=== PATIENT | male | born 1995 ===

== ENCOUNTER 2017-05-21 19:13 | Emergency (ER) | payer MEDICAID ==
[2017-05-21 19:31] VITALS: BP 141/74; PULSE 66; RESP 16; TEMP 98.2; O2SAT 99
--- NOTE | 2017-05-21 21:07 | ED PDOC ---
HPI: Psych/Substance Abuse Time Seen by Provider: 05/21/17 19:38 Chief Complaint (Nursing): Psychiatric Evaluation Chief Complaint (Provider): Psychiatric Evaluation History Per: Patient, Family History/Exam Limitations: no limitations Onset/Duration Of Symptoms: Days (x 3 weeks) Current Symptoms Are (Timing): Still Present Additional Complaint(s): Homer is a 21 y/o male with a history of Autism, brought to the ED by family for psychiatric evaluation. Family members report patient has been increasingly aggressive over the last 3 weeks. Patient denies any physical complaints. PMD: Provider TBD Past Medical History Reviewed: Historical Data, Nursing Documentation, Vital Signs Vital Signs: Last Vital Signs Temp 98.2 F 05/21/17 19:28 Pulse 66 05/21/17 19:28 Resp 16 05/21/17 19:28 BP 141/74 05/21/17 19:28 Pulse Ox 99 05/21/17 19:28 - Medical History Other PMH: Autism - Family History Family History: States: Unknown Family Hx - Allergies Allergies/Adverse Reactions: Allergies Allergy/AdvReac Type Severity Reaction Status Date / Time No Known Allergies Allergy Verified 05/21/17 19:28 Review of Systems ROS Statement: Except As Marked, All Systems Reviewed And Found Negative Psych: Positive for: Other (Aggression) Physical Exam - Reviewed Nursing Documentation Reviewed: Yes Vital Signs Reviewed: Yes - Physical Exam Appears: Positive for: Well, Non-toxic, No Acute Distress Head Exam: Positive for: ATRAUMATIC, NORMAL INSPECTION, NORMOCEPHALIC Skin: Positive for: Normal Color, Warm, Dry Eye Exam: Positive for: Normal appearance Neck: Positive for: Normal Cardiovascular/Chest: Positive for: Regular Rate, Rhythm. Negative for: Murmur Respiratory: Positive for: Normal Breath Sounds. Negative for: Respiratory Distress Extremity: Positive for: Normal ROM. Negative for: Pedal Edema, Deformity Neurologic/Psych: Positive for: Alert, Oriented, Other (Behavior consistent with diagnosis). Negative for: Motor/Sensory Deficits - ECG O2 Sat by Pulse Oximetry: 99 (RA) Pulse Ox Interpretation: Normal Medical Decision Making Medical Decision Making: Time: 20:15 Initial Plan: --Ordered crisis evaluation Patient requesting info on cars, which I gave him. Patient was thankful and appeared happy. Time: 20:45 --Discussed case w/ firestop/containment worker. Patient is medically stable and will be discharged home. Clinical Impression: Autism Scribe Attestation: Documented by Danni Riley, acting as a scribe for Yareli Low PA-C Provider Scribe Attestation: All medical record entries made by the Scribe were at my direction and personally dictated by me. I have reviewed the chart and agree that the record accurately reflects my personal performance of the history, physical exam, medical decision making, and the department course for this patient. I have also personally directed, reviewed, and agree with the discharge instructions and disposition. Disposition - Clinical Impression Clinical Impression: Autism - Patient ED Disposition Is Patient to be Admitted: No Counseled Patient/Family Regarding: Diagnosis, Need For Followup - Disposition Referrals: [facility] [Outside] Disposition: Routine/Home Disposition Time: 20:45 Condition: STABLE Instructions: Autism Spectrum Disorder (ED) Forms: [employer] (Gambian)
== END 2017-05-21 21:20 | disposition home or self-care (01) ==
LOC: H.ER 19:13
DX: F84.0 Autistic disorder (principal)

== ENCOUNTER 2018-10-03 19:32 | Inpatient (IN) | payer MEDICARE, MEDICAID ==
[2018-10-03 22:18] LABS: BASO # 0.1 K/uL (0.0-0.2); BASO % 0.4 % (0.0-2.0); EOS % 0.3 % (0.0-4.0); HEMOGLOBIN 14.1 g/dL (12.0-18.0); LYMPH # 1.6 K/uL (1.0-4.3); LYMPH % 11.6 % (20.0-40.0); MEAN CELL VOLUME 85.4 fl (80.0-94.0); MEAN CORPUSCULAR HGB CONC 32.8 g/dL (33.0-37.0); MEAN PLATELET VOLUME 9.3 fl (7.2-11.7); MONO # 0.9 K/uL (0.0-0.8); MONO % 6.9 % (0.0-10.0); NEUT % 80.8 % (50.0-75.0); RBC 5.03 Mil/uL (4.40-5.90); RED CELL DISTRIBUTION WIDTH 14.4 % (11.5-14.5); WHITE BLOOD COUNT 13.6 K/uL (4.8-10.8)
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
[2018-10-03 22:33] LABS: ACETAMINOPHEN < 10.0 ug/ml (10.0-30.0); BLOOD UREA NITROGEN 18 mg/dl (9-20); CALCIUM 9.6 mg/dL (8.4-10.2); GFR NON-AFRICAN AMERICAN > 60
--- NOTE | 2018-10-04 00:10 | ED PDOC ---
- Laboratory Results Result Diagrams: 10/03/18 22:10 10/03/18 22:10 - ECG O2 Sat by Pulse Oximetry: 100 (RA) Pulse Ox Interpretation: Normal Medical Decision Making Medical Decision Makin Patient endorsed by Dr. Kaplan, pending [facility] [place] and reevaluation. 0[address] Patient signed out to Dr. Fuentes, pending [facility] screen and reevaluation. Scribe Attestation: Documented by Pippa Aguilera, acting as a scribe for Jose Alejandro Garcia MD. Provider Scribe Attestation: All medical record entries made by the Scribe were at my direction and personally dictated by me. I have reviewed the chart and agree that the record accurately reflects my personal performance of the history, physical exam, medical decision making, and the department course for this patient. I have also personally directed, reviewed, and agree with the discharge instructions and disposition. Disposition - Clinical Impression Clinical Impression: Autism - POA Present On Arrival: None - Disposition Disposition: Transfer of Care Disposition Time: 07:00 Condition: STABLE Forms: [employer] (Palestinian) Patient Signed Over To: Tessa Fuentes (pending [facility] screen and reevaluation.)
[2018-10-04 00:29] LABS: SALICYLATE < 1.0 mg/dl
[2018-10-04 04:53] LABS: BARBITURATES, UR NEGATIVE (NEGATIVE); BENZODIAZEPINES, UR NEGATIVE (NEGATIVE); OPIATES, UR NEGATIVE (NEGATIVE); PHENCYCLIDINE, UR NEGATIVE (NEGATIVE)
[2018-10-04 05:14] LABS: URINE BACTERIA RARE (<OCC); URINE BILIRUBIN NEGATIVE (NEGATIVE); URINE BLOOD NEGATIVE (NEGATIVE); URINE CLARITY SLIGHTY-CLOUDY (Clear); URINE COLOR YELLOW (YELLOW); URINE GLUCOSE (UA) NEG (NEGATIVE); URINE LEUKOCYTE ESTERASE NEG Leu/uL (Negative); URINE PROTEIN NEGATIVE (NEGATIVE); URINE UROBILINOGEN 0.2-1.0 mg/dL (0.2-1.0)
--- NOTE | 2018-10-04 07:10 | ED PDOC ---
- Laboratory Results Result Diagrams: 10/03/18 22:10 10/03/18 22:10 Lab Results: Urine Color Yellow (YELLOW) 10/04/18 04:24 Urine Clarity Slighty-cloudy (Clear) 10/04/18 04:24 Urine pH 7.0 (5.0-8.0) 10/04/18 04:24 Ur Specific [place] 1.017 (1.003-1.030) 10/04/18 04:24 Urine Protein Negative mg/dL (NEGATIVE) 10/04/18 04:24 Urine Glucose (UA) Neg mg/dL (NEGATIVE) 10/04/18 04:24 Urine Ketones Trace mg/dL (NEGATIVE) 10/04/18 04:24 Urine Blood Negative (NEGATIVE) 10/04/18 04:24 Urine Nitrate Negative (NEGATIVE) 10/04/18 04:24 Urine Bilirubin Negative (NEGATIVE) 10/04/18 04:24 Urine Urobilinogen 0.2-1.0 mg/dL (0.2-1.0) 10/04/18 04:24 Ur Leukocyte Esterase Neg Kin/uL (Negative) 10/04/18 04:24 Urine RBC (Auto) 1 /hpf (0-3) 10/04/18 04:24 Urine Microscopic WBC 1 /hpf (0-5) 10/04/18 04:24 Urine Bacteria Rare (<OCC) 10/04/18 04:24 - ECG O2 Sat by Pulse Oximetry: 100 (RA) Pulse Ox Interpretation: Normal Medical Decision Making Medical Decision Making: Patient signed out to [place] by Dr. Claire pending [facility] screen. 0807 Pt's initial workup done by prior MD. Labs reviewed, mildly elevated WC. No UTI. CXR reviewed, no active disease. Patient medically cleared for [facility] evaluation. 1414 CXR FINDINGS: LUNGS: No active pulmonary disease. PLEURA: No significant pleural effusion identified, no pneumothorax apparent. CARDIOVASCULAR: No atherosclerotic calcification present Normal. OSSEOUS STRUCTURES: No significant abnormalities. VISUALIZED UPPER ABDOMEN: Normal. OTHER FINDINGS: None. IMPRESSION: No active disease. [address] Patient signed out to Dr. Cedillo pending [facility] screen Scribe Attestation: Documented by Merlene Pak acting as a scribe for Tessa Fuentes MD Provider Attestation: All medical record entries made by the Scribe were at my direction and personally dictated by me. I have reviewed the chart and agree that the record accurately reflects my personal performance of the history, physical exam, medi becki decision making, and the department course for this patient. I have also personally directed, reviewed, and agree with the discharge instructions and disposition. Disposition - Clinical Impression Clinical Impression: Autism - POA Present On Arrival: None - Disposition Disposition: Transfer of Care Disposition Time: 15:00 Condition: STABLE Forms: [employer] (Argentine) Patient Signed Over To: Ludin Cedillo
--- NOTE | 2018-10-04 09:04 | CARD ---
APPROVED REPORT Date of service: 10/04/2018 EKG Measurement Heart [id number] <Conclusion> Sinus bradycardia ST elevation, probably due to early repolarization Borderline ECG
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
--- NOTE | 2018-10-04 14:18 | RAD ---
Date of service: 10/03/2018 HISTORY: psych COMPARISON: Report FINDINGS: LUNGS: No active pulmonary disease. PLEURA: No significant pleural effusion identified, no pneumothorax apparent. CARDIOVASCULAR: No atherosclerotic calcification present Normal. OSSEOUS STRUCTURES: No significant abnormalities. VISUALIZED UPPER ABDOMEN: Normal. OTHER FINDINGS: None. IMPRESSION: No active disease.
--- NOTE | 2018-10-04 15:31 | ED PDOC ---
- Laboratory Results Result Diagrams: 10/03/18 22:10 10/03/18 22:10 Lab Results: Urine Color Yellow (YELLOW) 10/04/18 04:24 Urine Clarity Slighty-cloudy (Clear) 10/04/18 04:24 Urine pH 7.0 (5.0-8.0) 10/04/18 04:24 Ur Specific [place] 1.017 (1.003-1.030) 10/04/18 04:24 Urine Protein Negative mg/dL (NEGATIVE) 10/04/18 04:24 Urine Glucose (UA) Neg mg/dL (NEGATIVE) 10/04/18 04:24 Urine Ketones Trace mg/dL (NEGATIVE) 10/04/18 04:24 Urine Blood Negative (NEGATIVE) 10/04/18 04:24 Urine Nitrate Negative (NEGATIVE) 10/04/18 04:24 Urine Bilirubin Negative (NEGATIVE) 10/04/18 04:24 Urine Urobilinogen 0.2-1.0 mg/dL (0.2-1.0) 10/04/18 04:24 Ur Leukocyte Esterase Neg Kin/uL (Negative) 10/04/18 04:24 Urine RBC (Auto) 1 /hpf (0-3) 10/04/18 04:24 Urine Microscopic WBC 1 /hpf (0-5) 10/04/18 04:24 Urine Bacteria Rare (<OCC) 10/04/18 04:24 - ECG O2 Sat by Pulse Oximetry: 100 (RA) Pulse Ox Interpretation: Normal - Progress ED Course And Treament: 2151: Will give pt. home meds. Stable. Pending crisis eval. 2326: Dr. Claire to [facility]. Medical Decision Making Medical Decision Making: Patient signed out to me by Dr. Fuentes pending [facility] [place] [place] screen. Scribe Attestation: Documented by Merlene Pak acting as a scribe for Ludin Cedillo MD Provider Attestation: All medical record entries made by the Scribe were at my direction and personally dictated by me. I have reviewed the chart and agree that the record accurately reflects my personal performance of the history, physical exam, medical decision making, and the department course for this patient. I have also personally directed, reviewed, and agree with the discharge instructions and disposition. Disposition - Clinical Impression Clinical Impression: Autism - POA Present On Arrival: None - Disposition Disposition: Transfer of Care Disposition Time: 23:28 Condition: STABLE Forms: [employer] (Lao)
--- NOTE | 2018-10-05 00:01 | ED PDOC ---
- Laboratory Results Result Diagrams: 10/03/18 22:10 10/03/18 22:10 Lab Results: Urine Color Yellow (YELLOW) 10/04/18 04:24 Urine Clarity Slighty-cloudy (Clear) 10/04/18 04:24 Urine pH 7.0 (5.0-8.0) 10/04/18 04:24 Ur Specific [place] 1.017 (1.003-1.030) 10/04/18 04:24 Urine Protein Negative mg/dL (NEGATIVE) 10/04/18 04:24 Urine Glucose (UA) Neg mg/dL (NEGATIVE) 10/04/18 04:24 Urine Ketones Trace mg/dL (NEGATIVE) 10/04/18 04:24 Urine Blood Negative (NEGATIVE) 10/04/18 04:24 Urine Nitrate Negative (NEGATIVE) 10/04/18 04:24 Urine Bilirubin Negative (NEGATIVE) 10/04/18 04:24 Urine Urobilinogen 0.2-1.0 mg/dL (0.2-1.0) 10/04/18 04:24 Ur Leukocyte Esterase Neg Kin/uL (Negative) 10/04/18 04:24 Urine RBC (Auto) 1 /hpf (0-3) 10/04/18 04:24 Urine Microscopic WBC 1 /hpf (0-5) 10/04/18 04:24 Urine Bacteria Rare (<OCC) 10/04/18 04:24 - ECG O2 Sat by Pulse Oximetry: 99 (RA) Pulse Ox Interpretation: Normal Medical Decision Making Medical Decision Makin Patient endorsed by Dr. Cedillo, pending [facility] screen evaluation. 0110 Patient evaluated by [facility] screening and does not involuntary commitment. Crisis will perform a bed search at another facility specialized for autism. Patient signed out to Dr Rojas at 7AM Scribe Attestation: Documented by Pippa Aguilera, acting as a scribe for Jose Alejandro Claire MD. Provider Scribe Attestation: All medical record entries made by the Scribe were at my direction and personally dictated by me. I have reviewed the chart and agree that the record accurately reflects my personal performance of the history, physical exam, medical decision making, and the department course for this patient. I have also personally directed, reviewed, and agree with the discharge instructions and disposition. Disposition - Clinical Impression Clinical Impression: Autism - POA Present On Arrival: None - Disposition Disposition: Transfer of Care Disposition Time: 07:00 Condition: FAIR Forms: [employer] (Sinhala)
--- NOTE | 2018-10-05 06:57 | ED PDOC ---
- Laboratory Results Result Diagrams: 10/03/18 22:10 10/03/18 22:10 Lab Results: Urine Color Yellow (YELLOW) 10/04/18 04:24 Urine Clarity Slighty-cloudy (Clear) 10/04/18 04:24 Urine pH 7.0 (5.0-8.0) 10/04/18 04:24 Ur Specific [place] 1.017 (1.003-1.030) 10/04/18 04:24 Urine Protein Negative mg/dL (NEGATIVE) 10/04/18 04:24 Urine Glucose (UA) Neg mg/dL (NEGATIVE) 10/04/18 04:24 Urine Ketones Trace mg/dL (NEGATIVE) 10/04/18 04:24 Urine Blood Negative (NEGATIVE) 10/04/18 04:24 Urine Nitrate Negative (NEGATIVE) 10/04/18 04:24 Urine Bilirubin Negative (NEGATIVE) 10/04/18 04:24 Urine Urobilinogen 0.2-1.0 mg/dL (0.2-1.0) 10/04/18 04:24 Ur Leukocyte Esterase Neg Kin/uL (Negative) 10/04/18 04:24 Urine RBC (Auto) 1 /hpf (0-3) 10/04/18 04:24 Urine Microscopic WBC 1 /hpf (0-5) 10/04/18 04:24 Urine Bacteria Rare (<OCC) 10/04/18 04:24 - ECG O2 Sat by Pulse Oximetry: 99 (RA) Pulse Ox Interpretation: Normal Medical Decision Making Medical Decision Making: Time: 0700 Patient care endorsed by Dr. Claire, pending bed search by Crisis. Scribe Attestation: Documented by Ellis Chavez, acting as a scribe for Jolly Rojas MD. Provider Scribe Attestation: All medical record entries made by the Scribe were at my direction and personally dictated by me. I have reviewed the chart and agree that the record accurately reflects my personal performance of the history, physical exam, medical decision making, and the department course for this patient. I have also personally directed, reviewed, and agree with the discharge instructions and disposition. patient pending bed for transfer as per psych recommendation. Patient has been without complaint or distress. Disposition - Clinical Impression Clinical Impression: Autism - POA Present On Arrival: None - Disposition Disposition: Transfer of Care Disposition Time: 14:35 Condition: FAIR Forms: [employer] (Serbian) Patient Signed Over To: Ludin Cedillo
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
[2018-10-05] MEDS: Divalproex 250 mg DR(BID formulation) PO SCH (17:56)
[2018-10-05] MEDS: Divalproex 500 mg DR(BID formulation) PO SCH (17:57)
--- NOTE | 2018-10-06 00:38 | ED PDOC ---
- Laboratory Results Result Diagrams: 10/03/18 22:10 10/03/18 22:10 Lab Results: Urine Color Yellow (YELLOW) 10/04/18 04:24 Urine Clarity Slighty-cloudy (Clear) 10/04/18 04:24 Urine pH 7.0 (5.0-8.0) 10/04/18 04:24 Ur Specific Ecru 1.017 (1.003-1.030) 10/04/18 04:24 Urine Protein Negative mg/dL (NEGATIVE) 10/04/18 04:24 Urine Glucose (UA) Neg mg/dL (NEGATIVE) 10/04/18 04:24 Urine Ketones Trace mg/dL (NEGATIVE) 10/04/18 04:24 Urine Blood Negative (NEGATIVE) 10/04/18 04:24 Urine Nitrate Negative (NEGATIVE) 10/04/18 04:24 Urine Bilirubin Negative (NEGATIVE) 10/04/18 04:24 Urine Urobilinogen 0.2-1.0 mg/dL (0.2-1.0) 10/04/18 04:24 Ur Leukocyte Esterase Neg Kin/uL (Negative) 10/04/18 04:24 Urine RBC (Auto) 1 /hpf (0-3) 10/04/18 04:24 Urine Microscopic WBC 1 /hpf (0-5) 10/04/18 04:24 Urine Bacteria Rare (<OCC) 10/04/18 04:24 - ECG O2 Sat by Pulse Oximetry: 98 (RA) Pulse Ox Interpretation: Normal Medical Decision Making Medical Decision Makin:00 Patient signed out to this provider by Dr. Cedillo pending [facility] bed availability. 07:00 Vital signs stable through shift. Patient resting comfortably. Lungs CTA B/L, CVS RRR Patient will be signed out to Dr. Rojas pending bed placement. Scribe Attestation: Documented by Yue Frederick acting as a scribe for Jose Alejandro Claire MD Provider Scribe Attestation: All medical record entries made by the Scribe were at my direction and personally dictated by me. I have reviewed the chart and agree that the record accurately reflects my personal performance of the history, physical exam, me dical decision making, and the department course for this patient. I have also personally directed, reviewed, and agree with the discharge instructions and disposition. Disposition - Clinical Impression Clinical Impression: Autism - POA Present On Arrival: None - Disposition Disposition: Transfer of Care Disposition Time: 07:00 Condition: FAIR
--- NOTE | 2018-10-06 07:24 | ED PDOC ---
- Laboratory Results Result Diagrams: 10/03/18 22:10 10/03/18 22:10 Lab Results: Urine Color Yellow (YELLOW) 10/04/18 04:24 Urine Clarity Slighty-cloudy (Clear) 10/04/18 04:24 Urine pH 7.0 (5.0-8.0) 10/04/18 04:24 Ur Specific Kathleen 1.017 (1.003-1.030) 10/04/18 04:24 Urine Protein Negative mg/dL (NEGATIVE) 10/04/18 04:24 Urine Glucose (UA) Neg mg/dL (NEGATIVE) 10/04/18 04:24 Urine Ketones Trace mg/dL (NEGATIVE) 10/04/18 04:24 Urine Blood Negative (NEGATIVE) 10/04/18 04:24 Urine Nitrate Negative (NEGATIVE) 10/04/18 04:24 Urine Bilirubin Negative (NEGATIVE) 10/04/18 04:24 Urine Urobilinogen 0.2-1.0 mg/dL (0.2-1.0) 10/04/18 04:24 Ur Leukocyte Esterase Neg Kin/uL (Negative) 10/04/18 04:24 Urine RBC (Auto) 1 /hpf (0-3) 10/04/18 04:24 Urine Microscopic WBC 1 /hpf (0-5) 10/04/18 04:24 Urine Bacteria Rare (<OCC) 10/04/18 04:24 - ECG O2 Sat by Pulse Oximetry: 97 (RA) Pulse Ox Interpretation: Normal Medical Decision Making Medical Decision Makin:[address] Rojas from Dr. Claire pending [facility] bed placement. --- Scribe Attestation: Documented by Essence Najera acting as a scribe for Jolly Rojas MD Provider Scribe Attestation: All medical record entries made by the Scribe were at my direction and personally dictated by me. I have reviewed the chart and agree that the record accurately reflects my personal performance of the history, physical exam, medical decision making, and the department course for this patient. I have also personally directed, reviewed, and agree with the discharge instructions and disposition. Disposition - Clinical Impression Clinical Impression: Autism - POA Present On Arrival: None - Disposition Disposition: Transfer of Care Disposition Time: 15:13 Condition: FAIR Forms: [employer] (Lao) Patient Signed Over To: Ludin Cedillo
[2018-10-06] MEDS: Divalproex 500 mg DR(BID formulation) PO SCH ×2 (08:23→17:27)
[2018-10-06] MEDS: Divalproex 250 mg DR(BID formulation) PO SCH ×2 (08:23→17:26)
--- NOTE | 2018-10-06 16:20 | ED PDOC ---
- Laboratory Results Result Diagrams: 10/03/18 22:10 10/03/18 22:10 Lab Results: Urine Color Yellow (YELLOW) 10/04/18 04:24 Urine Clarity Slighty-cloudy (Clear) 10/04/18 04:24 Urine pH 7.0 (5.0-8.0) 10/04/18 04:24 Ur Specific [place] 1.017 (1.003-1.030) 10/04/18 04:24 Urine Protein Negative mg/dL (NEGATIVE) 10/04/18 04:24 Urine Glucose (UA) Neg mg/dL (NEGATIVE) 10/04/18 04:24 Urine Ketones Trace mg/dL (NEGATIVE) 10/04/18 04:24 Urine Blood Negative (NEGATIVE) 10/04/18 04:24 Urine Nitrate Negative (NEGATIVE) 10/04/18 04:24 Urine Bilirubin Negative (NEGATIVE) 10/04/18 04:24 Urine Urobilinogen 0.2-1.0 mg/dL (0.2-1.0) 10/04/18 04:24 Ur Leukocyte Esterase Neg Kin/uL (Negative) 10/04/18 04:24 Urine RBC (Auto) 1 /hpf (0-3) 10/04/18 04:24 Urine Microscopic WBC 1 /hpf (0-5) 10/04/18 04:24 Urine Bacteria Rare (<OCC) 10/04/18 04:24 - ECG O2 Sat by Pulse Oximetry: 97 (RA) - Progress ED Course And Treament: 1500: Took over care from Dr. Rojas. Fu placement. 1619: Stable. Spoke with Dr. Lara. He has been following pt. States pt. is not safe to be dc. Still trying to find a bed for pt. He will order meds for pt. Continue to keep in the ER. 1819: Stable. AAOx3. Pain free. Continue monitoring. Lungs clear. Heart rrr. 2029: Stable. Pending further psychiatric evaluation. AAOx3. Still homicidal. Tolerating po. 2037: Stable. Dr. Lara to admit. Disposition - Clinical Impression Clinical Impression: Autism - POA Present On Arrival: None - Disposition Disposition: Admitted as In-Patient (psych) Disposition Time: 16:20 Condition: FAIR
--- NOTE | 2018-10-06 16:29 | CP.PCM.CON ---
History of Present Illness - History of Present Illness History of Present Illness: pt is seen today for follow up at ER.pt has remained very impulsive and unpredictable and says that if gets upset again at home ,he will hurt someone and after that if he feels guilty he would kill himself .pt is not safe for d/c and need continued 1:1 observation. Past Patient History - Past Social History Alcohol: None - CARDIAC Hx Hypertension: No - PULMONARY Hx Tuberculosis: No - NEUROLOGICAL Hx Seizures: No - HEMATOLOGICAL/ONCOLOGICAL Hx Human Immunodeficiency Virus (HIV): No - GENITOURINARY/GYNECOLOGICAL Hx Sexually Transmitted Disorders: No - PSYCHIATRIC Hx Psychophysiologic Disorder: Yes (Autism) Hx Substance Use: No Other/Comment: Autism - SURGICAL HISTORY Hx Surgeries: No - ANESTHESIA Hx Anesthesia: No Meds Allergies/Adverse Reactions: Allergies Allergy/AdvReac Type Severity Reaction Status Date / Time No Known Allergies Allergy Verified 05/21/17 19:28 - Medications Medications: Current Medications Aripiprazole (Abilify) 5 mg PO BID [facility] Last Admin: 10/06/18 08:28 Dose: 5 mg Divalproex Sodium (Depakote Dr(*Bid*)) 500 mg PO BID [facility] Last Admin: 10/06/18 08:23 Dose: 500 mg Divalproex Sodium (Depakote Dr(*Bid*)) 250 mg PO BID [facility] Last Admin: 10/06/18 08:23 Dose: 250 mg Escitalopram Oxalate (Lexapro) 20 mg PO DAILY [facility] Last Admin: 10/06/18 08:22 Dose: 20 mg Results - Vital Signs Recent Vital Signs: Last Vital Signs Temp 97.6 F 10/06/18 07:56 Pulse 70 10/06/18 07:56 Resp 19 10/06/18 07:56 BP 114/53 L 10/06/18 07:56 Pulse Ox 97 10/06/18 16:20 - Labs Result Diagrams: 10/03/18 22:10 10/03/18 22:10 Labs: Laboratory Results - last 24 hr 10/06/18 06:45 Valproic Acid 90.4 Assessment & Plan - Assessment and Plan (Free Text) Assessment: Psychotic disorder not specified will continhe to look for inpt psych hospitalization with involuntary committment .
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
[2018-10-06] MEDS ORDERED: DiphenhydrAMINE 50 mg/ml Inj IM PRN (22:46)
[2018-10-06] MEDS ORDERED: Magnesium Hydroxide Susp 30 ml UD PO PRN (22:46)
[2018-10-06] MEDS ORDERED: Alum-Mag Hydrox-Simethicone Susp (30 mL) PO PRN (22:46)
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
[2018-10-07 03:41] VITALS: O2SAT 98
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
[2018-10-07] MEDS: Divalproex 500 mg DR(BID formulation) PO SCH ×3 (13:19→21:12)
[2018-10-07] MEDS: Divalproex 250 mg DR(BID formulation) PO SCH (13:20)
--- NOTE | 2018-10-07 13:36 | PCM.PYCHPN ---
Psychiatric Progress Note - Psychiatric Progress Note Patient seen today, length of contact: pt evaluated discussed with team chart reviewed Patient Chief Complaint: I agata people because they are annoying Problems Identified/Issues Discussed: pt evaluated, superficially cooperative , presenting with inappropriate affect, laughing inappropriately with concrete thought process and limited insight into illness, behavioral redirection constantly provided by staff, discussed with pt importance of impulse control, pt denied any current homicidal thoughts, denied command hallucinations, no reported side effects of medications DSM 5 Symptoms Update: autistic spectrum disorder Medication Change: Yes (increase depakote ) Medical Record Reviewed: Yes Mental Status Examination - Cognitive Function Orientation: Person, Place Attention: Poor Concentration: Poor Fund of Knowledge: Poor Decription of patient's judgement and insights: poor insight and judgment - Mood Mood: Anxious - Affect Affect: Constricted, Blunted - Speech Additional comments: under productive telegraphic - Formal Thought Process Formal Thought Process: Hallucinations, Delusions, Paranoia, Circumstantial - Suicidal Ideation Suicidal Ideation: No - Homicidal Ideation Homicidal Ideation: No Goal/Treatment Plan - Goal/Treatment Plan Need for Continued Stay: Remain at risks for inpatient hospitalization, Discharge may exacerbated symptoms, Severe functional impairment Progress Toward Problem(s) and Goals/Treatment Plan: continue abilify 7.5mg bid/ increase gradually to 10mg bid depakote 1500mg daily/ follow up on depakote level behavioral treatment/ geriatric social work professor will possibly contact CARE
[2018-10-08] MEDS: Divalproex 500 mg DR(BID formulation) PO SCH ×3 (09:50→21:09)
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
[2018-10-09] MEDS: Divalproex 500 mg DR(BID formulation) PO SCH ×2 (10:10→16:33)
--- NOTE | 2018-10-09 13:56 | PCM.PYCHPN ---
Psychiatric Progress Note - Psychiatric Progress Note Patient seen today, length of contact: pt evaluated discussed with team chart reviewed Patient Chief Complaint: I want the spy kids to disappear Problems Identified/Issues Discussed: pt evaluated,with treatment team,presenting with anxious mood , irritable affect, continues to be unpredictable , with unprovoked anger episodes, pt continues to report obsessive thoughts about certain movie characters, , behavioral and CBT therapy provided, discussed with pt how to try to distract his thought process and the need to try to express his feelings to staff members rather than acting out , pt with limited intellectual function at times appear hypervigilant and angry , discussed increasing dose of depakote, pt denied command hallucinations, denied active thoughts of self harm DSM 5 Symptoms Update: autistic spectrum disorder Medication Change: Yes (increase depakote ) Medical Record Reviewed: Yes Mental Status Examination - Cognitive Function Orientation: Person, Place Attention: Poor Concentration: Poor Fund of Knowledge: Poor Decription of patient's judgement and insights: poor insight and judgment - Mood Mood: Anxious - Affect Affect: Constricted, Blunted - Speech Speech: Loud - Formal Thought Process Formal Thought Process: Hallucinations, Delusions, Paranoia, Circumstantial - Suicidal Ideation Suicidal Ideation: No - Homicidal Ideation Homicidal Ideation: No Goal/Treatment Plan - Goal/Treatment Plan Need for Continued Stay: Remain at risks for inpatient hospitalization, Discharge may exacerbated symptoms, Severe functional impairment Progress Toward Problem(s) and Goals/Treatment Plan: increased abilify to 10mg bid increase depakote 500mg bid and 750mg qhs follow up on depakote level discontinue lexapro behavioral treatment/ case management social worker will possibly contact CARE arrange for family meeting to discuss treatment plan
[2018-10-09] MEDS: Divalproex 250 mg DR(BID formulation) PO SCH (22:30)
[2018-10-10] MEDS: Divalproex 500 mg DR(BID formulation) PO SCH ×3 (08:48→16:38)
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
[2018-10-10] MEDS: Divalproex 250 mg DR(BID formulation) PO SCH (21:08)
[2018-10-11] MEDS: Divalproex 500 mg DR(BID formulation) PO SCH ×2 (08:08→18:31)
[2018-10-11 12:00] VITALS: BMI 30.4
--- NOTE | 2018-10-11 15:54 | PCM.PYCHPN ---
Psychiatric Progress Note - Psychiatric Progress Note Patient seen today, length of contact: pt evaluated discussed with team chart reviewed Patient Chief Complaint: I am great right Problems Identified/Issues Discussed: pt evaluated , continues to present with loud speech, labile affect, at times restless, continues to have episodes of unprovoked anger , needs constant redirection by staff pt has concrete thought process, , continues to ruminate on movies he has watched , behavioral treatment provided , discussing with pt the need to try to shift attention off certain thoughts, pt finds it hard to retain coping skills provided no reported side effects of medications DSM 5 Symptoms Update: autistic spectrum disorder OCD bipolar disorder Medication Change: No Medical Record Reviewed: Yes Mental Status Examination - Cognitive Function Orientation: Person, Place Attention: Poor Concentration: Poor Fund of Knowledge: Poor Decription of patient's judgement and insights: poor insight and judgment - Mood Mood: Anxious - Affect Affect: Constricted, Blunted - Speech Speech: Loud - Formal Thought Process Formal Thought Process: Hallucinations, Delusions, Paranoia, Circumstantial - Suicidal Ideation Suicidal Ideation: No - Homicidal Ideation Homicidal Ideation: No Goal/Treatment Plan - Goal/Treatment Plan Need for Continued Stay: Remain at risks for inpatient hospitalization, Discharge may exacerbated symptoms, Severe functional impairment Progress Toward Problem(s) and Goals/Treatment Plan: abilify 10mg bid depakote 500mg bid and 750mg qhs follow up on depakote level behavioral treatment/ discontinue ativan for risk of paradoxical stimulation continue with vistaril continue 1: 1 observation as pt continues to be risk for self and others
[2018-10-11] MEDS: Divalproex 250 mg DR(BID formulation) PO SCH (21:02)
[2018-10-12] MEDS: Divalproex 500 mg DR(BID formulation) PO SCH ×3 (08:37→21:05)
--- NOTE | 2018-10-12 14:16 | PCM.PYCHPN ---
Psychiatric Progress Note - Psychiatric Progress Note Patient seen today, length of contact: pt evaluated discussed with team chart reviewed Patient Chief Complaint: I want to draw with a pencil Problems Identified/Issues Discussed: pt evaluated , seen pacing on the unit, concrete thought process, needs constant behavioral re direction by staff, no current reported episodes of physical aggression , accepting re direction, no reported changes in sleep or appetite no reported side effects of medications , pt denied command hallucinations, denied any current suicidal or homicidal ideation DSM 5 Symptoms Update: autistic spectrum disorder OCD Bipolar disorder Medication Change: Yes (decrease depakote ) Medical Record Reviewed: Yes Mental Status Examination - Cognitive Function Orientation: Person, Place Attention: Poor Concentration: Poor Decription of patient's judgement and insights: poor insight and judgment - Mood Mood: Anxious - Affect Affect: Broad - Speech Speech: Loud - Formal Thought Process Formal Thought Process: Delusions, Paranoia, Circumstantial - Suicidal Ideation Suicidal Ideation: No - Homicidal Ideation Homicidal Ideation: No Goal/Treatment Plan - Goal/Treatment Plan Need for Continued Stay: Remain at risks for inpatient hospitalization, Discharge may exacerbated symptoms, Severe functional impairment Progress Toward Problem(s) and Goals/Treatment Plan: abilify 10mg bid depakote level 120 , will decrease depakote to depakote 500mg bid and 500mg qhs behavioral treatment/ continue with vistaril continue 1: 1 observation as pt continues to be risk for self and others pt has been interviewed by AILEEN, accepted to be part of after care plan on discharge
[2018-10-13] MEDS: Divalproex 500 mg DR(BID formulation) PO SCH ×3 (08:45→21:09)
--- NOTE | 2018-10-13 12:18 | PCM.PYCHPN ---
Psychiatric Progress Note - Psychiatric Progress Note Patient seen today, length of contact: pt evaluated discussed with team chart reviewed Patient Chief Complaint: I like to color with crayons Problems Identified/Issues Discussed: pt evaluated ,appears calmer, responding to re direction, spending his time coloring, pt has not verbalized verbal threats towards staff or other patients, no reported changes in sleep or appetite no reported side effects of medications , pt denied command hallucinations, denied any current suicidal or homicidal ideation DSM 5 Symptoms Update: autistic spectrum disorder bipolar disorder ] OCD Medication Change: No Medical Record Reviewed: Yes Mental Status Examination - Cognitive Function Orientation: Person, Place Attention: Poor Concentration: Poor Decription of patient's judgement and insights: poor insight and judgment - Mood Mood: Anxious - Affect Affect: Broad - Speech Speech: Loud - Formal Thought Process Formal Thought Process: Delusions, Paranoia, Circumstantial - Suicidal Ideation Suicidal Ideation: No - Homicidal Ideation Homicidal Ideation: No Goal/Treatment Plan - Goal/Treatment Plan Need for Continued Stay: Remain at risks for inpatient hospitalization, Discharge may exacerbated symptoms, Severe functional impairment Progress Toward Problem(s) and Goals/Treatment Plan: abilify 10mg bid depakote 500mg bid and 500mg qhs / WILL REPEAT DEPAKOTE LEVEL behavioral treatment/ continue with vistaril continue 1: 1 observation as pt continues to be risk for self and others pt has been interviewed by AILEEN, accepted to be part of after care plan on discharge
[2018-10-14] MEDS: Divalproex 500 mg DR(BID formulation) PO SCH ×3 (08:18→21:04)
--- NOTE | 2018-10-14 12:39 | PCM.PYCHPN ---
Psychiatric Progress Note - Psychiatric Progress Note Patient seen today, length of contact: pt evaluated discussed with team chart reviewed Patient Chief Complaint: ALL GOOD TODAY Problems Identified/Issues Discussed: pt evaluated ,less irritable, responding to re direction, spending his time coloring, attending groups and compliant with treatment pt has not verbalized verbal threats towards staff or other patients, no reported changes in sleep or appetite no reported side effects of medications , pt denied command hallucinations, denied any current suicidal or homicidal ideation DSM 5 Symptoms Update: autistic spectrum disorder bipolar disorder Obsessive compulsive disorder Medication Change: No Medical Record Reviewed: Yes Mental Status Examination - Cognitive Function Orientation: Person, Place Attention: WNL Concentration: Poor Decription of patient's judgement and insights: poor insight and judgment - Mood Mood: Anxious - Affect Affect: Broad - Speech Speech: Loud - Formal Thought Process Formal Thought Process: Delusions, Circumstantial - Suicidal Ideation Suicidal Ideation: No - Homicidal Ideation Homicidal Ideation: No Goal/Treatment Plan - Goal/Treatment Plan Need for Continued Stay: Remain at risks for inpatient hospitalization, Discharge may exacerbated symptoms, Severe functional impairment Progress Toward Problem(s) and Goals/Treatment Plan: abilify 10mg bid depakote 500mg bid and 500mg qhs / repeat depakote level tomorrow AM behavioral treatment/ continue with vistaril continue 1: 1 observation as pt continues to be risk for self and others pt has been interviewed by AILEEN, accepted to be part of after care plan on discharge
[2018-10-15] MEDS: Divalproex 500 mg DR(BID formulation) PO SCH ×3 (08:34→21:03)
--- NOTE | 2018-10-15 11:22 | PCM.PYCHPN ---
Psychiatric Progress Note - Psychiatric Progress Note Patient seen today, length of contact: pt evaluated discussed with team chart reviewed Patient Chief Complaint: I am feeling good Problems Identified/Issues Discussed: pt evaluated ,smiling, cooperative with staff , less irritable, responding to re direction, attending groups and compliant with treatment pt has not verbalized verbal threats towards staff or other patients, no reported changes in sleep or appetite no reported side effects of medications , pt denied command hallucinations, denied any current suicidal or homicidal ideation DSM 5 Symptoms Update: autistic spectrum disorder bipolar disorder OCD Medication Change: No Medical Record Reviewed: Yes Mental Status Examination - Cognitive Function Orientation: Person, Place Attention: WNL Concentration: Poor Decription of patient's judgement and insights: poor insight and judgment - Mood Mood: Anxious - Affect Affect: Broad - Speech Speech: Loud - Formal Thought Process Formal Thought Process: Delusions, Circumstantial - Suicidal Ideation Suicidal Ideation: No - Homicidal Ideation Homicidal Ideation: No Goal/Treatment Plan - Goal/Treatment Plan Need for Continued Stay: Remain at risks for inpatient hospitalization, Discharge may exacerbated symptoms, Severe functional impairment Progress Toward Problem(s) and Goals/Treatment Plan: abilify 10mg bid depakote 500mg bid and 500mg qhs /depakote level 65 behavioral treatment/ continue with vistaril continue 1: 1 observation as pt continues to be risk for self and others pt has been interviewed by AILEEN, accepted to be part of after care plan on discharge
[2018-10-16] MEDS: Divalproex 500 mg DR(BID formulation) PO SCH (08:42)
[2018-10-16 10:42] VITALS: BP 138/74; PULSE 80; RESP 17; TEMP 97.5
== END 2018-10-16 15:00 | disposition home or self-care (01) | DRG 885 ==
LOC: H.ER 19:32 → H.PSYCH 10-06 17:00
PROVIDERS: ADMIT Psychiatry & Neurology Psychiatry; ATTEND Psychiatry & Neurology Psychiatry
PROC: GZHZZZZ Group Psychotherapy (ICD-10-PCS; principal; 2018-10-06)
PROC: GZ58ZZZ Individual Psychotherapy, Cognitive-Behavioral (ICD-10-PCS; 2018-10-06)
DX: F31.9 Bipolar disorder, unspecified (principal); R45.851 Suicidal ideations; F84.0 Autistic disorder; R45.850 Homicidal ideations; F42.9 Obsessive-compulsive disorder, unspecified; F63.9 Impulse disorder, unspecified; E78.1 Pure hyperglyceridemia; D72.829 Elevated white blood cell count, unspecified